=== PATIENT | male | born 1960 | race Two or more races ===

== ENCOUNTER 2022-07-10 07:22 | Day surgery (SDC) | payer MEDICAID ==
[~2022-07-10] VITALS: Ht 170.2 cm; Wt 70.3 kg
[~2022-07-10 07:22] MED LIST: APIX5TAB PO; ATOR20TA50 PO; DAPA1TAB4 PO; FURO20TA3 PO; METO25TA5 PO; SACU1TAB PO; SERT-375 PO; SPIR25TA8 PO
[2022-07-10] MEDS ORDERED: MIDAZOLAM HCL 2MG/2ML 2ml VIAL (1mg/ml) IV ONE (08:15)
[2022-07-10] MEDS ORDERED: fentaNYL CITRATE 100 MCG/2 ML VL IV ONE (08:15)
[2022-07-10] MEDS ORDERED: LIDOCAINE VISCOUS 2% 15ML UD MT ONE (08:15)
[2022-07-10] MEDS ORDERED: diphenhdrAMINE HCL 50 MG/1 ML VL IV ONE (08:15)
[2022-07-10 09:14] VITALS: BP 91/60
== END 2022-07-10 10:38 | disposition home or self-care (01) ==
LOC: CATH 07:22
PROVIDERS: ATTEND Internal Medicine
DX: I05.9 Rheumatic mitral valve disease, unspecified (principal); I11.0 Hypertensive heart disease with heart failure; I50.20 Unspecified systolic (congestive) heart failure; E78.5 Hyperlipidemia, unspecified; Z87.891 Personal history of nicotine dependence; Z79.02 Long term (current) use of antithrombotics/antiplatelets; Z20.822 Contact with and (suspected) exposure to COVID-19
CPT/HCPCS: 93312; J1200; J2250; J3010; U0003; 99152

== ENCOUNTER 2022-08-20 15:39 | Emergency (ER) | payer MEDICAID ==
[~2022-08-20] VITALS: Ht 170.2 cm; Wt 80.0 kg
[2022-08-20 18:02] LABS: Basophils # (auto) 0 10 ^3/uL (0-0.2); Basophils % (auto) 0.5 % (0.0-2.0); Eosinophils # (auto) 0.1 10 ^3/uL (0-0.8); Eosinophils % (auto) 1.5 % (0.0-7.0); Hematocrit 40.3 % (41.0-53.0); Hemoglobin 13.2 g/dL (13.5-17.5); Lymphocytes # (auto) 1.9 10 ^3/uL (0.4-5.4); Lymphocytes % (auto) 33.5 % (10.0-50.0); Mean Corpuscular Hemoglobin 30.2 pg (28.0-32.0); Mean Corpuscular Hgb Conc. 32.8 g/dL (32.0-36.0); Mean Corpuscular Volume 92.2 fL (80.0-100.0); Monocytes # (auto) 0.6 10 ^3/uL (0-1.3); Monocytes % (auto) 10.9 % (0.0-12.0); Neutrophils % (auto) 53.6 % (37.0-80.0); Nucleated Red Blood Cells % 0.2 %; Red Blood Cells 4.37 10^6/uL (4.5-5.90); Red Cell Distribution Width 13.9 % (11.8-14.3); White Blood Cell 5.6 10^3/uL (4.4-10.8)
[2022-08-20 18:21] LABS: Albumin 4.1 g/dL (3.4-5.0); Anion Gap 7 (5-15); Blood Urea Nitrogen 18 mg/dL (7-18); Calcium 8.4 mg/dL (8.5-10.1); Carbon Dioxide 25 mmol/L (21-32); Chloride 109 mmol/L (98-107); Glucose 102 mg/dL (74-106); Potassium 5.1 mmol/L (3.5-5.1); Sodium 141 mmol/L (136-145)
[2022-08-20 18:23] LABS: Alanine Aminotransferase 28 U/L (16-61); Aspartate Aminotransferase 23 U/L (15-37); BUN/Creatinine Ratio 19.8; GFR African American 108 mL/min; GFR Non-African American 89 mL/min
[2022-08-20 18:25] LABS: Alkaline Phosphatase 109 U/L (45-117); Bilirubin, Total 0.5 mg/dL (0.2-1.0); Total Protein 7.9 g/dL (6.4-8.2)
[2022-08-21] MEDS ORDERED: ASPirin 325 MG TAB PO ONE (06:30)
[2022-08-21] MEDS ORDERED: MORPHINE SULFATE 4 MG/ML SYR/VIAL IV ONE (06:30)
[2022-08-21] MEDS ORDERED: ONDANSETRON HCL 4 MG/2 ML VIAL IV ONE (06:30)
[2022-08-21 07:39] VITALS: BP 145/80
[2022-08-22] MEDS ORDERED: CARV6.2551 PO (10:32)
== END 2022-08-21 11:52 | disposition home or self-care (01) ==
LOC: ER 15:39
DX: R07.89 Other chest pain (principal); I10 Essential (primary) hypertension; Z79.899 Other long term (current) drug therapy; Z20.822 Contact with and (suspected) exposure to COVID-19
CPT/HCPCS: 36415; 71045; 80053; 84484; 85025; 87426; 93005; 96374; 96375; 99285; J2270; J2405

== ENCOUNTER 2022-08-21 15:25 | Inpatient (IN) | payer MEDICAID ==
[~2022-08-21] VITALS: Ht 170.2 cm; Wt 72.7 kg
[2022-08-21 15:56] LABS: Basophils # (auto) 0 10 ^3/uL (0-0.2); Basophils % (auto) 0.2 % (0.0-2.0); Eosinophils # (auto) 0.1 10 ^3/uL (0-0.8); Eosinophils % (auto) 1.5 % (0.0-7.0); Hematocrit 39.2 % (41.0-53.0); Hemoglobin 12.9 g/dL (13.5-17.5); Lymphocytes # (auto) 1.4 10 ^3/uL (0.4-5.4); Lymphocytes % (auto) 20.9 % (10.0-50.0); Mean Corpuscular Hemoglobin 29.8 pg (28.0-32.0); Mean Corpuscular Hgb Conc. 32.9 g/dL (32.0-36.0); Mean Corpuscular Volume 90.4 fL (80.0-100.0); Monocytes # (auto) 0.7 10 ^3/uL (0-1.3); Monocytes % (auto) 10.7 % (0.0-12.0); Neutrophils # (auto) 4.6 10 ^3/uL (1.6-8.6); Neutrophils % (auto) 66.7 % (37.0-80.0); Nucleated Red Blood Cells % 0.1 %; Red Blood Cells 4.34 10^6/uL (4.5-5.90); Red Cell Distribution Width 13.5 % (11.8-14.3); White Blood Cell 6.9 10^3/uL (4.4-10.8)
[2022-08-21 16:19] LABS: Albumin 4.3 g/dL (3.4-5.0); BUN/Creatinine Ratio 14.2; Calcium 8.4 mg/dL (8.5-10.1); Potassium 3.8 mmol/L (3.5-5.1)
[2022-08-21 16:21] LABS: Bilirubin, Total 0.6 mg/dL (0.2-1.0)
[2022-08-21] MEDS ORDERED: ONDANSETRON HCL 4 MG/2 ML VIAL IV PRN (23:45)
[2022-08-21] MEDS ORDERED: MORPHINE SULFATE INJ 2 MG/ml SYRG IV PRN ×2 (23:45)
[2022-08-21] MEDS ORDERED: NITROGLYCERIN 0.4 MG SL TAB SL PRN (23:45)
[2022-08-22] MEDS ORDERED: MORPHINE SULFATE INJ 2 MG/ml SYRG IV PRN (05:30)
[2022-08-22] MEDS ORDERED: ONDANSETRON HCL 4 MG/2 ML VIAL IV PRN (05:30)
[2022-08-22] MEDS ORDERED: NITROGLYCERIN 0.4 MG SL TAB SL PRN (05:30)
[2022-08-22] MEDS ORDERED: ACETAMINOPHEN 325 MG TAB PO PRN (05:30)
[2022-08-22] MEDS ORDERED: TEMAZEPAM 15 MG CAP PO PRN (05:30)
[2022-08-22] MEDS ORDERED: PANTOPRAZOLE 40 MG TAB PO SCH (10:00)
[2022-08-22] MEDS ORDERED: CARVEDILOL 3.125 MG TAB PO SCH (10:00)
[2022-08-22] MEDS ORDERED: SACUBITRIL-VALSARTAN 24mg/26mg TAB PO SCH (10:00)
[2022-08-22] MEDS ORDERED: ASPirin 81 mg TAB PO SCH (10:00)
[2022-08-22] MEDS ORDERED: METOPROLOL SUCCINATE XL 50 MG TAB PO SCH (10:00)
[2022-08-22] MEDS ORDERED: FUROSEMIDE 20 MG TAB PO SCH (10:00)
[2022-08-22] MEDS ORDERED: SPIRONOLACTONE 25 MG TAB PO SCH (10:00)
[2022-08-22] MEDS ORDERED: APIXABAN 5 MG TAB PO SCH (10:00)
[2022-08-22] MEDS ORDERED: CARV6.2551 PO (10:32)
[2022-08-22 14:15] VITALS: BP 103/65
[2022-08-22] MEDS ORDERED: ATORVASTATIN 20 MG TAB PO SCH (22:00)
== END 2022-08-22 14:16 | disposition home or self-care (01) | DRG 198 ==
LOC: ER 15:25 → TELE 23:49
PROVIDERS: ADMIT Internal Medicine; ATTEND Internal Medicine
DX: R07.9 Chest pain, unspecified (principal); I25.10 Atherosclerotic heart disease of native coronary artery without angina pectoris; I11.0 Hypertensive heart disease with heart failure; I50.9 Heart failure, unspecified; E78.5 Hyperlipidemia, unspecified; Z20.822 Contact with and (suspected) exposure to COVID-19; F32.A Depression, unspecified; Z79.01 Long term (current) use of anticoagulants; Z72.0 Tobacco use; Z95.5 Presence of coronary angioplasty implant and graft; Z91.199 Patient's noncompliance with other medical treatment and regimen due to unspecified reason; Z79.899 Other long term (current) drug therapy; Z86.79 Personal history of other diseases of the circulatory system
CPT/HCPCS: 36415; 80053; 84484; 85025; 85379; 87426; 93005; G0378

== ENCOUNTER 2024-03-04 08:04 | Inpatient (IN) | payer MEDICAID ==
[~2024-03-04] VITALS: Ht 170.2 cm; Wt 75.1 kg
[~2024-03-04 08:04] MED LIST changes: +CARV6.2551 PO
[2024-03-04 08:32] LABS: Basophils # (auto) 0 10 ^3/uL (0-0.2); Basophils % (auto) 0.4 % (0.0-2.0); Eosinophils # (auto) 0.1 10 ^3/uL (0-0.8); Hematocrit 42.2 % (41.0-53.0); Hemoglobin 13.9 g/dL (13.5-17.5); Lymphocytes # (auto) 1.6 10 ^3/uL (0.4-5.4); Mean Corpuscular Hemoglobin 28.9 pg (28.0-32.0); Mean Corpuscular Volume 87.7 fL (80.0-100.0); Monocytes # (auto) 0.4 10 ^3/uL (0-1.3); Monocytes % (auto) 9.5 % (0.0-12.0); Neutrophils # (auto) 2.3 10 ^3/uL (1.6-8.6); Neutrophils % (auto) 52.1 % (37.0-80.0); Nucleated Red Blood Cells % 0.2 %; Red Blood Cells 4.81 10^6/uL (4.5-5.90); Red Cell Distribution Width 14.5 % (11.8-14.3); White Blood Cell 4.5 10^3/uL (4.4-10.8)
[2024-03-04] MEDS: NITROGLYCERIN 0.4 MG SL TAB SL ONE (09:00)
[2024-03-04] MEDS: ASPirin 325 MG TAB PO ONE (09:00)
[2024-03-04 09:03] LABS: Alanine Aminotransferase 13 U/L (7-40); Albumin 4.9 g/dL (3.2-4.8); Alkaline Phosphatase 92 U/L (46-116); Anion Gap 8 (5-15); Aspartate Aminotransferase 21 U/L (13-40); BUN/Creatinine Ratio 8.9 (10.0-20.0); Blood Urea Nitrogen 9 mg/dL (9-23); Calcium 9.7 mg/dL (8.5-10.1); Carbon Dioxide 25 mmol/L (20-30); Chloride 107 mmol/L (98-107); Glucose 107 mg/dL (74-106); Potassium 4.2 mmol/L (3.5-5.1); Sodium 140 mmol/L (136-145)
[2024-03-04 09:04] LABS: Bilirubin, Total 0.9 mg/dL (0.2-1.0); Total Protein 8.2 g/dL (5.7-8.2)
[2024-03-04] MEDS ORDERED: ONDANSETRON HCL 4 MG/2 ML VIAL IV PRN (12:15)
[2024-03-04] MEDS ORDERED: NITROGLYCERIN 0.4 MG SL TAB SL PRN (12:15)
[2024-03-04] MEDS ORDERED: MORPHINE SULFATE INJ 2 MG/ml SYRG IV PRN (12:15)
[2024-03-04] MEDS ORDERED: ACETAMINOPHEN 325 MG TAB PO PRN (12:15)
[2024-03-04 12:43] LABS: INR 1.04 (0.9-1.15); Partial Thromboplastin Time 24.9 SEC (24.5-34.5)
[2024-03-04 15:00] VITALS: PULSE 84; RESP 17; O2SAT 94
[2024-03-04 15:17] LABS: Urine Bacteria None Seen /hpf (None Seen)
[2024-03-04 15:32] LABS: Urine Blood Negative /uL (Negative); Urine Clarity Clear (Clear); Urine Color Yellow (Yellow); Urine Mucus FEW (None Seen); Urine Protein, UAD Negative (Negative); Urine Specific Gravity 1.025 (1.001-1.035); Urine Urobilinogen Normal (Negative); Urine WBC 1 /hpf (0 - 3)
[2024-03-04 19:30] VITALS: PULSE 70; RESP 17; O2SAT 94
[2024-03-04] MEDS: IOHEXOL 350 MG/ML 100ML IJ ONE (21:02)
[2024-03-04] MEDS: FAMOTIDINE 20 MG TAB PO SCH (21:59)
[2024-03-04] MEDS: SACUBITRIL-VALSARTAN 24mg/26mg TAB PO SCH (21:59)
[2024-03-04] MEDS: APIXABAN 5 MG TAB PO SCH (21:59)
[2024-03-04] MEDS: CARVEDILOL 3.125 MG TAB PO SCH (22:00)
[2024-03-04] MEDS ORDERED: PATIENTS OWN MEDICATION (Carvedilol 1 TAB) PO SCH (22:00)
[2024-03-05] VITALS (8 sets, daily range): BP systolic 100–113; BP diastolic 68–78; PULSE 66–92; RESP 16–20; TEMP 97.5–98.8; O2SAT 93–97
[2024-03-05 06:16] LABS: Chloride 106 mmol/L (98-107); Potassium 4.3 mmol/L (3.5-5.1); Sodium 137 mmol/L (136-145)
[2024-03-05 06:17] LABS: Anion Gap 7 (5-15); Carbon Dioxide 24 mmol/L (20-30)
[2024-03-05 06:18] LABS: Calcium 9.4 mg/dL (8.5-10.1)
[2024-03-05 06:22] LABS: BUN/Creatinine Ratio 12.5 (10.0-20.0); Blood Urea Nitrogen 11 mg/dL (9-23); Glucose 100 mg/dL (74-106)
[2024-03-05] MEDS ORDERED: SERTRALINE HCL 25 MG PO SCH (10:00)
[2024-03-05] MEDS: FUROSEMIDE 20 MG TAB PO SCH (11:56)
[2024-03-05] MEDS: ATORVASTATIN 20 MG TAB PO SCH (11:56)
[2024-03-05] MEDS: SERTRALINE HCL 50 MG TAB PO SCH (11:57)
[2024-03-05] MEDS: SODIUM CHLORIDE 0.9% 1,000 ML IV SCH (15:15)
[2024-03-06] VITALS (14 sets, daily range): BP systolic 87–121; BP diastolic 58–85; PULSE 52–97; RESP 11–22; TEMP 97.3–98.6; O2SAT 92–97
[2024-03-06 06:19] LABS: Basophils # (auto) 0.1 10 ^3/uL (0-0.2); Basophils % (auto) 0.9 % (0.0-2.0); Eosinophils # (auto) 0.2 10 ^3/uL (0-0.8); Eosinophils % (auto) 3.2 % (0.0-7.0); Hematocrit 37.4 % (41.0-53.0); Hemoglobin 12.5 g/dL (13.5-17.5); Lymphocytes % (auto) 35.4 % (10.0-50.0); Mean Corpuscular Hgb Conc. 33.4 g/dL (32.0-36.0); Mean Corpuscular Volume 89.8 fL (80.0-100.0); Monocytes # (auto) 0.6 10 ^3/uL (0-1.3); Monocytes % (auto) 11.2 % (0.0-12.0); Neutrophils # (auto) 2.8 10 ^3/uL (1.6-8.6); Neutrophils % (auto) 49.3 % (37.0-80.0); Nucleated Red Blood Cells % 0.3 %; Red Blood Cells 4.17 10^6/uL (4.5-5.90); Red Cell Distribution Width 15.1 % (11.8-14.3); White Blood Cell 5.7 10^3/uL (4.4-10.8)
[2024-03-06 06:35] LABS: Alanine Aminotransferase 14 U/L (7-40); Alkaline Phosphatase 75 U/L (46-116); Anion Gap 7 (5-15); Calcium 9.5 mg/dL (8.7-10.4); Carbon Dioxide 22 mmol/L (20-30); Chloride 110 mmol/L (98-107); INR 1.06 (0.9-1.15); Partial Thromboplastin Time 25.4 SEC (24.5-34.5); Potassium 4.5 mmol/L (3.5-5.1); Prothrombin Time 11.2 sec (9.3-11.8); Sodium 139 mmol/L (136-145)
[2024-03-06 06:36] LABS: BUN/Creatinine Ratio 12.3 (10.0-20.0); Blood Urea Nitrogen 13 mg/dL (9-23); Glucose 110 mg/dL (74-106)
[2024-03-06 06:38] LABS: Albumin 4.1 g/dL (3.2-4.8); Aspartate Aminotransferase 17 U/L (13-40); Bilirubin, Total 0.7 mg/dL (0.2-1.0); Total Protein 6.9 g/dL (5.7-8.2)
[2024-03-06] MEDS: IODIXANOL 320MG/ML 100ML BTL IV ONE ×2 (08:20→12:41)
[2024-03-06] MEDS: ANGIOMAX 250 MG VIAL IV ONE (12:34)
[2024-03-06] MEDS: MIDAZOLAM HCL 2MG/2ML 2ml VIAL (1mg/ml) ONE (12:35)
[2024-03-06] MEDS: fentaNYL CITRATE 100 MCG/2 ML VL ONE (12:35)
[2024-03-06] MEDS: SODIUM CHL 0.9% 0 ML ONE (12:35)
[2024-03-06] MEDS: VERAPAMIL 2.5MG/ML INJ 2ML VIAL IV ONE (12:41)
[2024-03-06] MEDS: HEPARIN SODIUM (PORCINE) 5000 UNITS/ML 1ML VIAL ONE (12:41)
[2024-03-06] MEDS: LIDOCAINE 2%HCL (LOCAL ANESTH.) INJ 20ML MDV ONE (12:41)
[2024-03-06] MEDS ORDERED: SACU1TAB PO (19:33)
[2024-03-06] MEDS ORDERED: APIX5TAB PO (19:33)
[2024-03-06] MEDS ORDERED: METO25TA5 PO (19:33)
[2024-03-06] MEDS ORDERED: CARV6.2551 PO (19:33)
[2024-03-06] MEDS ORDERED: DAPA1TAB4 PO (19:33)
[2024-03-06] MEDS ORDERED: ATOR20TA50 PO (19:33)
[2024-03-06] MEDS ORDERED: FURO20TA3 PO (19:33)
== END 2024-03-06 18:59 | disposition home or self-care (01) | DRG 191 ==
LOC: ER 08:04 → TELE 12:06 → TELE-WESTW 12:06
PROVIDERS: ADMIT Hospitalist; ATTEND Hospitalist
PROC: B211YZZ Fluoroscopy of Multiple Coronary Arteries using Other Contrast (ICD-10-PCS; principal; 2024-03-06)
PROC: 4A023N7 Measurement of Cardiac Sampling and Pressure, Left Heart, Percutaneous Approach (ICD-10-PCS; 2024-03-06)
DX: I24.9 Acute ischemic heart disease, unspecified (principal); I42.8 Other cardiomyopathies; I50.22 Chronic systolic (congestive) heart failure; I11.0 Hypertensive heart disease with heart failure; I25.10 Atherosclerotic heart disease of native coronary artery without angina pectoris; Z79.899 Other long term (current) drug therapy; Z79.01 Long term (current) use of anticoagulants; Z79.84 Long term (current) use of oral hypoglycemic drugs; Z95.818 Presence of other cardiac implants and grafts; I25.2 Old myocardial infarction
CPT/HCPCS: 36415; 71045; 71275; 80048; 80053; 81001; 84439; 84443; 84484; 85025; 85379; 85610; 85730; 86850; 86900; 86901; 93005; 93306; 93458; 99152; G0378; J2250; Q9967

== ENCOUNTER 2024-08-05 06:44 | Inpatient (IN) | payer MEDICAID ==
[~2024-08-05] VITALS: Ht 170.2 cm; Wt 73.8 kg
[~2024-08-05 06:44] MED LIST changes: -SPIR25TA8 PO
[2024-08-05 07:58] VITALS: PULSE 118; RESP 18; O2SAT 98
[2024-08-05] MEDS ORDERED: HYDROmorphone HCL 2 MG/ML VL/or syr IV ONE (08:00)
[2024-08-05] MEDS: SODIUM CHLORIDE 0.9% 1,000 ML IV ONE ×2 (08:22→08:31)
[2024-08-05] MEDS: ONDANSETRON HCL 4 MG/2 ML VIAL IV ONE (08:22)
[2024-08-05] MEDS: MORPHINE SULFATE INJ 2 MG/ml SYRG IV ONE (08:22)
[2024-08-05 08:48] LABS: Basophils # (auto) 0 10 ^3/uL (0-0.2); Basophils % (auto) 0.1 % (0.0-2.0); Eosinophils # (auto) 0 10 ^3/uL (0-0.8); Eosinophils % (auto) 0.6 % (0.0-7.0); Hematocrit 35.8 % (41.0-53.0); Hemoglobin 12.1 g/dL (13.5-17.5); Lymphocytes # (auto) 0.4 10 ^3/uL (0.4-5.4); Lymphocytes % (auto) 5.9 % (10.0-50.0); Mean Corpuscular Hemoglobin 29.5 pg (28.0-32.0); Mean Corpuscular Hgb Conc. 33.9 g/dL (32.0-36.0); Mean Corpuscular Volume 87.1 fL (80.0-100.0); Monocytes # (auto) 0.1 10 ^3/uL (0-1.3); Monocytes % (auto) 1.1 % (0.0-12.0); Neutrophils # (auto) 6.2 10 ^3/uL (1.6-8.6); Neutrophils % (auto) 92.3 % (37.0-80.0); Nucleated Red Blood Cells % 0.1 %; Platelet Count (auto) 149 10^3/uL (140-450); Red Blood Cells 4.11 10^6/uL (4.5-5.90); Red Cell Distribution Width 19.1 % (11.8-14.3); White Blood Cell 6.7 10^3/uL (4.4-10.8)
[2024-08-05 09:04] LABS: Albumin 3.8 g/dL (3.2-4.8); Alkaline Phosphatase 206 U/L (46-116); Anion Gap 20 (5-15); BUN/Creatinine Ratio 9.2 (10.0-20.0); Bilirubin, Total 6.5 mg/dL (0.2-1.0); Blood Urea Nitrogen 42 mg/dL (9-23); Calcium 7.1 mg/dL (8.7-10.4); Carbon Dioxide 20 mmol/L (20-31); Chloride 98 mmol/L (98-107); Glucose 81 mg/dL (74-106); Magnesium 1.4 mg/dL (1.6-2.6); Partial Thromboplastin Time 43.3 SEC (24.5-34.5); Potassium 3.9 mmol/L (3.5-5.1); Sodium 138 mmol/L (136-145); Total Protein 6.4 g/dL (5.7-8.2)
[2024-08-05 09:25] LABS: INR > 8.0 (0.9-1.15)
[2024-08-05 09:54] LABS: Alanine Aminotransferase 5404 U/L (7-40); Aspartate Aminotransferase > 6000 U/L (13-40)
[2024-08-05 10:07] LABS: Lipase 58 U/L (12-53)
[2024-08-05] MEDS: MAGNESIUM SULFATE 1GM/100ML 100 ML IV SCH (14:00)
[2024-08-05] MEDS: SODIUM CHLORIDE 0.9% 1,000 ML IV SCH (15:45)
[2024-08-05] MEDS ORDERED: NITROGLYCERIN 0.4 MG SL TAB SL PRN (15:45)
[2024-08-05] MEDS ORDERED: DOCUSATE SOD 100 MG CAP PO PRN (15:45)
[2024-08-05] MEDS: PHYTONADIONE (VIT K)10 MG/ML 1ML VIAL SUBCUT ONE (16:43)
[2024-08-05] MEDS: ACETYLCYSTEINE 200MG/ML IV SOL 10,200 MG in D5W 5% 250 ML IV ONE (17:52)
[2024-08-05] MEDS: ACETYLCYSTEINE 200MG/ML IV SOL 3,400 MG in D5W 5% 500 ML IV ONE (18:49)
[2024-08-05 19:22] VITALS: PULSE 111; RESP 26; O2SAT 91
[2024-08-05] MEDS: ACETYLCYSTEINE 200MG/ML IV SOL 6,800 MG in D5W 5% 1,000 ML IV SCH (23:08)
[2024-08-05 23:18] LABS: Creatinine, Urine 96.22 mg/dL (30.0-125.0); Urine Amorphous Crystal MOD /hpf (None Seen); Urine Bacteria FEW /hpf (None Seen); Urine Blood 3+ /uL (Negative); Urine Clarity Ex.Turbid (Clear); Urine Color Dark-Yellow (Yellow); Urine Protein, UAD 2+ (Negative); Urine Specific Gravity 1.021 (1.001-1.035); Urine Urobilinogen Normal (Negative); Urine WBC 9 /hpf (0 - 3); Urine pH 5.5 (5.0-9.0)
[2024-08-05 23:57] LABS: Alkaline Phosphatase 172 U/L (46-116); Anion Gap 14 (5-15); BUN/Creatinine Ratio 7.4 (10.0-20.0); Bilirubin, Total 5.9 mg/dL (0.2-1.0); Blood Urea Nitrogen 39 mg/dL (9-23); Carbon Dioxide 22 mmol/L (20-31); Chloride 96 mmol/L (98-107); Glucose 172 mg/dL (74-106); Potassium 3.4 mmol/L (3.5-5.1); Total Protein 5.1 g/dL (5.7-8.2)
[2024-08-06] VITALS (7 sets, daily range): BP systolic 111–125; BP diastolic 67–82; PULSE 51–110; RESP 16–20; TEMP 98–98.5; O2SAT 93–96
[2024-08-06 00:14] LABS: Alanine Aminotransferase 3460 U/L (7-40); Aspartate Aminotransferase > 6000 U/L (13-40); Calcium 5.9 mg/dL (8.7-10.4); Sodium 132 mmol/L (136-145)
[2024-08-06 00:30] LABS: Prothrombin Time 44.1 sec (9.3-11.8)
[2024-08-06 00:40] LABS: Base Excess -2.8 mmol/L (-2.0-3.0)
[2024-08-06 00:47] LABS: INR 4.66 (0.9-1.15)
[2024-08-06] MEDS: CALCIUM GLUC 1,000mg/50ml-NS 50 ML IV SCH (01:51)
[2024-08-06 06:37] LABS: Basophils # (auto) 0 10 ^3/uL (0-0.2); Basophils % (auto) 0.1 % (0.0-2.0); Eosinophils # (auto) 0.1 10 ^3/uL (0-0.8); Eosinophils % (auto) 1.5 % (0.0-7.0); Hematocrit 27.7 % (41.0-53.0); Hemoglobin 9.7 g/dL (13.5-17.5); Lymphocytes # (auto) 0.6 10 ^3/uL (0.4-5.4); Lymphocytes % (auto) 13.6 % (10.0-50.0); Mean Corpuscular Hemoglobin 29.4 pg (28.0-32.0); Mean Corpuscular Hgb Conc. 34.8 g/dL (32.0-36.0); Mean Corpuscular Volume 84.5 fL (80.0-100.0); Monocytes # (auto) 0.1 10 ^3/uL (0-1.3); Monocytes % (auto) 2.6 % (0.0-12.0); Neutrophils # (auto) 3.9 10 ^3/uL (1.6-8.6); Neutrophils % (auto) 82.2 % (37.0-80.0); Platelet Count (auto) 147 10^3/uL (140-450); Red Blood Cells 3.28 10^6/uL (4.5-5.90); White Blood Cell 4.8 10^3/uL (4.4-10.8)
[2024-08-06 06:42] LABS: Albumin 2.9 g/dL (3.2-4.8); Alkaline Phosphatase 183 U/L (46-116); Anion Gap 16 (5-15); BUN/Creatinine Ratio 7.8 (10.0-20.0); Blood Urea Nitrogen 43 mg/dL (9-23); Calcium 6.6 mg/dL (8.7-10.4); Carbon Dioxide 20 mmol/L (20-31); Chloride 97 mmol/L (98-107); Cholesterol 55 mg/dL (< 200); Glucose 133 mg/dL (74-106); HDL Cholesterol 8 mg/dL (40-59); LDL Cholesterol 12 mg/dL (< 100); Magnesium 1.8 mg/dL (1.6-2.6); Partial Thromboplastin Time 43.3 SEC (24.5-34.5); Potassium 3.3 mmol/L (3.5-5.1); Prothrombin Time 41.7 sec (9.3-11.8); Sodium 133 mmol/L (136-145); Triglycerides 121 mg/dL (< 150)
[2024-08-06 06:43] LABS: Phosphorus 2.6 mg/dL (2.4-5.1)
[2024-08-06 06:53] LABS: Aspartate Aminotransferase 5386 U/L (13-40)
[2024-08-06 06:56] LABS: Alanine Aminotransferase 3285 U/L (7-40)
[2024-08-06] MEDS: SODIUM BICARB 8.4% 50Meq/50ml SYR Vial IV ONE (07:03)
[2024-08-06 07:16] LABS: INR 4.39 (0.9-1.15)
[2024-08-06 07:22] LABS: Lipase 45 U/L (12-53)
[2024-08-06 09:15] LABS: Hepatitis B Surface Antigen Negative (Negative)
[2024-08-06 09:36] LABS: Hepatitis B Core IgM Negative; Hepatitis C Antibody Negative (Negative)
[2024-08-06 10:00] LABS: Hepatitis A Ab IgM Negative
[2024-08-06 14:00] LABS: INR 3.19 (0.9-1.15)
[2024-08-06 14:01] LABS: Alkaline Phosphatase 197 U/L (46-116); Anion Gap 17 (5-15); BUN/Creatinine Ratio 7.5 (10.0-20.0); Blood Urea Nitrogen 44 mg/dL (9-23); Calcium 6.9 mg/dL (8.7-10.4); Carbon Dioxide 20 mmol/L (20-31); Chloride 96 mmol/L (98-107); Glucose 153 mg/dL (74-106); Potassium 3.1 mmol/L (3.5-5.1); Sodium 133 mmol/L (136-145)
[2024-08-06 14:04] LABS: Bilirubin, Total 6.4 mg/dL (0.2-1.0); Total Protein 5.2 g/dL (5.7-8.2)
[2024-08-06] MEDS: ERGOCALCIFEROL 50,000 UNIT(1.25MG) CAP PO SCH (14:06)
[2024-08-06 14:13] LABS: Alanine Aminotransferase 3043 U/L (7-40); Aspartate Aminotransferase 4368 U/L (13-40)
[2024-08-06] MEDS: METOPROLOL SUCCINATE XL 50 MG TAB PO SCH (15:51)
[2024-08-06] MEDS: FUROSEMIDE 40 MG/4 ML VIAL IV ONE (15:56)
[2024-08-06] MEDS: SODIUM BICARB 8.4% 50Meq/50ml SYR INJ ONE (16:40)
[2024-08-06] MEDS: MORPHINE SULFATE INJ 2 MG/ml SYRG IV PRN (21:47)
[2024-08-06] MEDS: SODIUM BICARB 50mEq/50ml Vial 150 ML in D5W 5% 1,000 ML IV SCH (21:55)
[2024-08-07 05:00] VITALS: BP 118/75; PULSE 98; RESP 19; TEMP 98.3; O2SAT 91
[2024-08-07 08:00] VITALS: PULSE 82
[2024-08-07 08:06] LABS: EBV Ab VCA IgG Antibody 41.3 U/mL (0.0-17.9); EBV Ab VCA IgM Antibody <36.0 U/mL (0.0-35.9); EBV Early Antigen IgG Antibody 49.3 U/mL (0.0-17.9)
[2024-08-07 08:31] LABS: INR 1.96 (0.9-1.15); Prothrombin Time 19.8 sec (9.3-11.8)
[2024-08-07 09:10] LABS: Basophils # (auto) 0 10 ^3/uL (0-0.2); Basophils % (auto) 0.3 % (0.0-2.0); Eosinophils # (auto) 0.1 10 ^3/uL (0-0.8); Eosinophils % (auto) 3.4 % (0.0-7.0); Hematocrit 27.2 % (41.0-53.0); Hemoglobin 9.6 g/dL (13.5-17.5); Lymphocytes # (auto) 0.8 10 ^3/uL (0.4-5.4); Lymphocytes % (auto) 19.8 % (10.0-50.0); Mean Corpuscular Hemoglobin 29.6 pg (28.0-32.0); Mean Corpuscular Hgb Conc. 35.2 g/dL (32.0-36.0); Monocytes # (auto) 0.3 10 ^3/uL (0-1.3); Monocytes % (auto) 8.6 % (0.0-12.0); Neutrophils # (auto) 2.6 10 ^3/uL (1.6-8.6); Neutrophils % (auto) 67.9 % (37.0-80.0); Nucleated Red Blood Cells % 0.1 %; Platelet Count (auto) 162 10^3/uL (140-450); Red Blood Cells 3.24 10^6/uL (4.5-5.90); Red Cell Distribution Width 18.6 % (11.8-14.3); White Blood Cell 3.8 10^3/uL (4.4-10.8)
[2024-08-07 09:21] LABS: Albumin 2.8 g/dL (3.2-4.8); Alkaline Phosphatase 227 U/L (46-116); Anion Gap 14 (5-15); BUN/Creatinine Ratio 6.9 (10.0-20.0); Blood Urea Nitrogen 43 mg/dL (9-23); Calcium 7.1 mg/dL (8.7-10.4); Carbon Dioxide 25 mmol/L (20-31); Chloride 94 mmol/L (98-107); Glucose 122 mg/dL (74-106); Potassium 2.9 mmol/L (3.5-5.1); Sodium 133 mmol/L (136-145)
[2024-08-07 09:22] LABS: Bilirubin, Total 5.8 mg/dL (0.2-1.0)
[2024-08-07 09:24] LABS: INR 1.94 (0.9-1.15); Prothrombin Time 19.6 sec (9.3-11.8)
[2024-08-07 09:33] LABS: Aspartate Aminotransferase 2189 U/L (13-40)
[2024-08-07 09:37] VITALS: BP 99/66; PULSE 109; RESP 17; TEMP 97.6; O2SAT 96
[2024-08-07 09:37] LABS: Alanine Aminotransferase 2255 U/L (7-40)
[2024-08-07] MEDS: SODIUM BICARB 50mEq/50ml Vial 150 ML in D5W 5% 1,000 ML IV SCH (11:20)
[2024-08-07 13:00] VITALS: BP 119/67; PULSE 92; RESP 17; TEMP 97.5; O2SAT 96
[2024-08-07] MEDS ORDERED: SPIR25TA8 PO (15:14)
[2024-08-07] MEDS ORDERED: METO25TA93 PO (15:14)
[2024-08-07] MEDS ORDERED: PANT40T PO (15:14)
[2024-08-07] MEDS ORDERED: ATOR40TA52 PO (15:14)
[2024-08-07] MEDS ORDERED: ASPI81CH74 PO (15:14)
[2024-08-07] MEDS: phytonadione 2.5 MG in SODIUM CHL 0.9% 50 ML IV ONE (15:21)
[2024-08-07 20:00] VITALS: PULSE 99; RESP 21; O2SAT 95
[2024-08-07 20:15] VITALS: PULSE 99
[2024-08-07] MEDS: SODIUM BICARB 8.4% 50Meq/50ml SYR INJ ONE (21:02)
[2024-08-08] VITALS (13 sets, daily range): BP systolic 90–115; BP diastolic 54–69; PULSE 98–115; RESP 14–36; TEMP 98–99.1; O2SAT 81–99
[2024-08-08 05:23] LABS: Albumin 3.2 g/dL (3.2-4.8); Alkaline Phosphatase 340 U/L (46-116); Anion Gap 14 (5-15); BUN/Creatinine Ratio 7.4 (10.0-20.0); Bilirubin, Total 6.1 mg/dL (0.2-1.0); Blood Urea Nitrogen 42 mg/dL (9-23); Calcium 7.7 mg/dL (8.7-10.4); Carbon Dioxide 31 mmol/L (20-31); Chloride 90 mmol/L (98-107); Glucose 139 mg/dL (74-106); Potassium 2.6 mmol/L (3.5-5.1); Sodium 135 mmol/L (136-145); Total Protein 5.7 g/dL (5.7-8.2)
[2024-08-08 05:34] LABS: Aspartate Aminotransferase 1175 U/L (13-40)
[2024-08-08 05:35] LABS: Alanine Aminotransferase 1835 U/L (7-40)
[2024-08-08] MEDS: PROCHLORPERAZINE EDISYLATE 5 MG/ML 2ML VIAL IV ONE (07:03)
[2024-08-08] MEDS: POTASSIUM CHL 20MEQ/100ML 100 ML IV ONE (08:48)
[2024-08-08] MEDS: POTASSIUM EFFERVESENT TAB 25 MEQ PO ONE (10:00)
[2024-08-08] MEDS: SODIUM CHLORIDE 0.9% 1,000 ML IV SCH (11:29)
[2024-08-08] MEDS: POTASSIUM CHLORIDE 40 MEQ, LIDOCAINE 1% (LOCAL ANESTH.) 4 ML in SODIUM CHL 0.9% 250 ML IV ONE (11:55)
[2024-08-08 12:58] LABS: Albumin 3.4 g/dL (3.2-4.8); Alkaline Phosphatase 369 U/L (46-116); Anion Gap 14 (5-15); BUN/Creatinine Ratio 8.1 (10.0-20.0); Bilirubin, Total 6.3 mg/dL (0.2-1.0); Blood Urea Nitrogen 40 mg/dL (9-23); Calcium 7.9 mg/dL (8.7-10.4); Carbon Dioxide 30 mmol/L (20-31); Chloride 90 mmol/L (98-107); Glucose 117 mg/dL (74-106); Potassium 2.9 mmol/L (3.5-5.1); Sodium 134 mmol/L (136-145)
[2024-08-08 12:59] LABS: Total Protein 6.1 g/dL (5.7-8.2)
[2024-08-08 13:12] LABS: Alanine Aminotransferase 1760 U/L (7-40)
[2024-08-08] MEDS: ONDANSETRON HCL 4 MG/2 ML VIAL IV PRN (15:04)
[2024-08-08] MEDS: MAGNESIUM SULFATE 1GM/100ML 100 ML IV ONE (16:05)
[2024-08-09] VITALS (7 sets, daily range): BP systolic 94–102; BP diastolic 53–74; PULSE 75–120; RESP 17–20; TEMP 98–98.2; O2SAT 94–99
[2024-08-09 06:43] LABS: Hematocrit 32.1 % (41.0-53.0); Mean Corpuscular Hemoglobin 29.1 pg (28.0-32.0); Mean Corpuscular Hgb Conc. 34.4 g/dL (32.0-36.0); Mean Corpuscular Volume 84.5 fL (80.0-100.0); Platelet Count (auto) 187 10^3/uL (140-450); Red Cell Distribution Width 19.9 % (11.8-14.3); White Blood Cell 3.1 10^3/uL (4.4-10.8)
[2024-08-09 06:53] LABS: Anion Gap 10 (5-15); Carbon Dioxide 33 mmol/L (20-31); Chloride 94 mmol/L (98-107); Sodium 137 mmol/L (136-145)
[2024-08-09 06:54] LABS: Calcium 7.6 mg/dL (8.7-10.4)
[2024-08-09 06:59] LABS: BUN/Creatinine Ratio 9.4 (10.0-20.0); Blood Urea Nitrogen 37 mg/dL (9-23); Glucose 111 mg/dL (74-106)
[2024-08-09 07:21] LABS: Basophils % (manual) 0 (0.0-2.0); Blast Cells 0; Metamyelocytes % 0; Myelocytes % 0; Promyelocytes % 0
[2024-08-09 08:35] LABS: Anisocytosis Slight; Band Neutrophils % (manual) 1; Eosinophils % (manual) 1 (0-7); Lymphocytes % (manual) 26 (10.0-50.0); Monocytes % (manual) 24 (0-12); Platelet Estimate Adequate; Reactive Lymphocytes 1
[2024-08-09 08:36] LABS: Tear Drop Cells FEW
[2024-08-09] MEDS: POTASSIUM EFFERVESENT TAB 25 MEQ PO ONE (14:18)
[2024-08-10 01:00] VITALS: BP 107/63; PULSE 109; RESP 18; TEMP 98; O2SAT 94
[2024-08-10] MEDS: ACETYLCYSTEINE 6GM/30ml (200mg/ml) IV SOLN 30ML IV ONE (02:33)
[2024-08-10 05:00] VITALS: BP 93/64; PULSE 74; RESP 18; TEMP 97.9; O2SAT 98
[2024-08-10 07:33] LABS: Alanine Aminotransferase 864 U/L (7-40); Albumin 3.3 g/dL (3.2-4.8); Alkaline Phosphatase 375 U/L (46-116); Anion Gap 9 (5-15); Aspartate Aminotransferase 394 U/L (13-40); BUN/Creatinine Ratio 9.6 (10.0-20.0); Bilirubin, Total 6.3 mg/dL (0.2-1.0); Calcium 7.5 mg/dL (8.7-10.4); Carbon Dioxide 31 mmol/L (20-31); Chloride 96 mmol/L (98-107); Glucose 131 mg/dL (74-106); Potassium 3.5 mmol/L (3.5-5.1); Sodium 136 mmol/L (136-145); Total Protein 6.1 g/dL (5.7-8.2)
[2024-08-10 07:37] LABS: Blood Urea Nitrogen 24 mg/dL (9-23)
[2024-08-10 08:00] VITALS: PULSE 95; PULSE 97; RESP 21; O2SAT 95
[2024-08-10 09:00] VITALS: BP 92/62; PULSE 95; RESP 21; TEMP 98.1; O2SAT 95
[2024-08-10 13:00] VITALS: BP 107/67; PULSE 113; RESP 22; TEMP 98.3; O2SAT 94
[2024-08-10] MEDS ORDERED: METO25TA5 PO (14:37)
[2024-08-10 15:54] VITALS: BP 107/67; PULSE 113; RESP 22; TEMP 98.3; O2SAT 94
== END 2024-08-10 16:45 | disposition home or self-care (01) | DRG 812 ==
LOC: ER 06:44 → TELE-CENTR 15:44 → TELE 16:21 → TELE-WESTW 16:21 → TELE-CENTR 08-06 02:31 → DOU IN ICU 08-07 17:08 → TELE-WESTW 08-08 16:34
PROVIDERS: ADMIT Student in an Organized Health Care Education/Training Program; ATTEND Nurse Practitioner Acute Care
DX: T39.1X1A Poisoning by 4-Aminophenol derivatives, accidental (unintentional), initial encounter (principal); N17.0 Acute kidney failure with tubular necrosis; K76.7 Hepatorenal syndrome; I50.23 Acute on chronic systolic (congestive) heart failure; K70.40 Alcoholic hepatic failure without coma; D68.9 Coagulation defect, unspecified; E83.51 Hypocalcemia; N18.4 Chronic kidney disease, stage 4 (severe); K85.90 Acute pancreatitis without necrosis or infection, unspecified; E87.20 Acidosis, unspecified; K57.30 Diverticulosis of large intestine without perforation or abscess without bleeding; K44.9 Diaphragmatic hernia without obstruction or gangrene; K76.0 Fatty (change of) liver, not elsewhere classified; N20.0 Calculus of kidney; D64.9 Anemia, unspecified; E83.42 Hypomagnesemia; I25.10 Atherosclerotic heart disease of native coronary artery without angina pectoris; I47.19 Other supraventricular tachycardia; I42.8 Other cardiomyopathies; I34.0 Nonrheumatic mitral (valve) insufficiency; I13.0 Hypertensive heart and chronic kidney disease with heart failure and stage 1 through stage 4 chronic kidney disease, or unspecified chronic kidney disease; Z87.891 Personal history of nicotine dependence; Z98.61 Coronary angioplasty status; Z95.818 Presence of other cardiac implants and grafts; Y92.89 Other specified places as the place of occurrence of the external cause
CPT/HCPCS: 36415; 36600; 71046; 74176; 76705; 80048; 80053; 80061; 80074; 80320; 80329; 81001; 82140; 82306; 82570; 82607; 82805; 82962; 83036; 83605; 83690; 83735; 84100; 84300; 84443; 84484; 85007; 85025; 85027; 85610; 85730; 86664; 87081; 93005; 96365; 96366; 96372; 96375; 99291; G0378; J2003; J2405; J3430; J3480; J7060

== ENCOUNTER → 2024-10-20 | Outpatient (CLI) | payer MEDICARE, MEDICAID ==
[~2024-10-20] MED LIST changes: -APIX5TAB PO; -ATOR20TA50 PO; -CARV6.2551 PO; +PANT40T PO; -SACU1TAB PO; -SERT-375 PO
[2024-10-20 08:40] LABS: Basophils # (auto) 0 10 ^3/uL (0-0.2); Basophils % (auto) 0.5 % (0.0-2.0); Eosinophils # (auto) 0.2 10 ^3/uL (0-0.8); Eosinophils % (auto) 3.1 % (0.0-7.0); Hematocrit 37.2 % (41.0-53.0); Hemoglobin 12.5 g/dL (13.5-17.5); Lymphocytes # (auto) 2.2 10 ^3/uL (0.4-5.4); Lymphocytes % (auto) 36.3 % (10.0-50.0); Mean Corpuscular Hemoglobin 30.1 pg (28.0-32.0); Mean Corpuscular Hgb Conc. 33.7 g/dL (32.0-36.0); Mean Corpuscular Volume 89.5 fL (80.0-100.0); Monocytes # (auto) 0.8 10 ^3/uL (0-1.3); Monocytes % (auto) 12.6 % (0.0-12.0); Neutrophils # (auto) 2.9 10 ^3/uL (1.6-8.6); Neutrophils % (auto) 47.5 % (37.0-80.0); Nucleated Red Blood Cells % 0.1 %; Platelet Count (auto) 257 10^3/uL (140-450); Red Blood Cells 4.16 10^6/uL (4.5-5.90); Red Cell Distribution Width 14.8 % (11.8-14.3); White Blood Cell 6.1 10^3/uL (4.4-10.8)
[2024-10-20 08:56] LABS: INR 1.06 (0.9-1.15); Partial Thromboplastin Time 27.9 SEC (24.5-34.5); Prothrombin Time 11.2 sec (9.3-11.8)
[2024-10-20 09:22] LABS: Alanine Aminotransferase 29 U/L (7-40); Albumin 4.6 g/dL (3.2-4.8); Anion Gap 8 (5-15); Aspartate Aminotransferase 24 U/L (13-40); BUN/Creatinine Ratio 16.2 (10.0-20.0); Bilirubin, Total 0.5 mg/dL (0.2-1.0); Blood Urea Nitrogen 19 mg/dL (9-23); Carbon Dioxide 27 mmol/L (20-31); Chloride 106 mmol/L (98-107); Glucose 115 mg/dL (74-106); Potassium 4.8 mmol/L (3.5-5.1); Sodium 141 mmol/L (136-145); Total Protein 7.9 g/dL (5.7-8.2)
[2024-10-20 09:23] LABS: Alkaline Phosphatase 117 U/L (46-116); Calcium 10.6 mg/dL (8.7-10.4)
== END | disposition home or self-care (01) ==
LOC: LAB 08:14
PROVIDERS: ATTEND Internal Medicine
DX: I25.5 Ischemic cardiomyopathy (principal); R35.0 Frequency of micturition; I50.9 Heart failure, unspecified; I48.91 Unspecified atrial fibrillation
CPT/HCPCS: 36415; 80053; 84153; 85025; 85610; 85730

== ENCOUNTER → 2025-01-27 | Outpatient (CLI) | payer MEDICAID ==
[2025-01-27 09:40] LABS: Basophils # (auto) 0 10 ^3/uL (0-0.2); Basophils % (auto) 0.5 % (0.0-2.0); Eosinophils # (auto) 0.1 10 ^3/uL (0-0.8); Eosinophils % (auto) 1.9 % (0.0-7.0); Hematocrit 36.9 % (41.0-53.0); Lymphocytes # (auto) 2.1 10 ^3/uL (0.4-5.4); Lymphocytes % (auto) 33.6 % (10.0-50.0); Mean Corpuscular Hemoglobin 26.3 pg (28.0-32.0); Mean Corpuscular Hgb Conc. 32.5 g/dL (32.0-36.0); Mean Corpuscular Volume 80.8 fL (80.0-100.0); Monocytes # (auto) 0.7 10 ^3/uL (0-1.3); Monocytes % (auto) 10.6 % (0.0-12.0); Neutrophils # (auto) 3.3 10 ^3/uL (1.6-8.6); Neutrophils % (auto) 53.4 % (37.0-80.0); Platelet Count (auto) 295 10^3/uL (140-450); Red Blood Cells 4.56 10^6/uL (4.5-5.90); Red Cell Distribution Width 16.4 % (11.8-14.3); White Blood Cell 6.2 10^3/uL (4.4-10.8)
[2025-01-27 10:15] LABS: INR 1.01 (0.9-1.15); Partial Thromboplastin Time 27.1 SEC (24.5-34.5); Prothrombin Time 10.7 sec (9.3-11.8)
[2025-01-27 10:45] LABS: Alanine Aminotransferase 28 U/L (7-40); Alkaline Phosphatase 93 U/L (46-116); Anion Gap 11 (5-15); Aspartate Aminotransferase 24 U/L (13-40); BUN/Creatinine Ratio 10.3 (10.0-20.0); Bilirubin, Total 0.5 mg/dL (0.2-1.0); Blood Urea Nitrogen 12 mg/dL (9-23); Calcium 9.9 mg/dL (8.7-10.4); Carbon Dioxide 26 mmol/L (20-31); Chloride 106 mmol/L (98-107); Cholesterol 136 mg/dL (< 200); HDL Cholesterol 48 mg/dL (40-59); LDL Cholesterol 65 mg/dL (< 100); Potassium 4.2 mmol/L (3.5-5.1); Sodium 143 mmol/L (136-145); Triglycerides 109 mg/dL (< 150)
[2025-01-27 10:46] LABS: Albumin 4.9 g/dL (3.2-4.8); Glucose 113 mg/dL (74-106)
== END | disposition home or self-care (01) ==
LOC: LAB 09:10
PROVIDERS: ATTEND Licensed Practical Nurse
DX: Z13.1 Encounter for screening for diabetes mellitus (principal); Z13.220 Encounter for screening for lipoid disorders; Z13.29 Encounter for screening for other suspected endocrine disorder; I11.0 Hypertensive heart disease with heart failure; I50.9 Heart failure, unspecified; E55.9 Vitamin D deficiency, unspecified; I48.0 Paroxysmal atrial fibrillation; D68.69 Other thrombophilia
CPT/HCPCS: 36415; 80053; 80061; 82043; 82274; 82306; 83036; 84443; 85025; 85610; 85730

== ENCOUNTER → 2025-02-01 | Outpatient (CLI) | payer MEDICARE, MEDICAID ==
[~2025-02-01] VITALS: Ht 170.2 cm; Wt 63.5 kg
[2025-02-01] MEDS: REGADENOSON 0.4 MG/5 ML SYRG IV ONE ×2 (09:22)
--- NOTE | 2025-02-02 07:25 | DVHSR ---
APPROVED REPORT Exam: Nuclear Stress Test Indication: Cardiac Clearance Stress Tech: Sadaf Elmore Ht: 5 ft 7 in Wt: 140 lbs BSA: 1.74 m2 HR: 69 bpm BP: 136/90 mmHg BMI: 21.92 Rhythm: NSR Medical History Medical History: Former Smoker, Cardiomyopathy, CAD, MO, Mitral Clips, HTN, DM, HLD, EF 35-40% Allergies: No known drug allergies Stress Test Details Stress Test: Pharmacologic stress testing performed using 0.4 mg of regadenoson per 5 mL given IV ov er 10 seconds. Reason for pharmacologic stress test: Cardiac Clearance. HR Resting HR: 69 bpmMax Heart Rate (APMHR): 155.312982 bpm Max HR Achieved: 115 bpmTarget HR (85% APMHR): 131.076012 bpm % of APMHR: 74.19 Recovery HR: 88 bpm BP Resting BP: 136/90 mmHg Recovery BP: 113/67 mmHg ECG Resting ECG: NSR Clinical Reason for Termination: Completed protocol Nurse Comments Uneventful stress test performed per prtocol. Patient tolerated well and ambulated back to [facility] in stable condition by tech. Stress ECG Conclusion inferior wall ischemia noted lvef 70% ecg shows, SR ST depressions and TWI with stress portion abnormal study NM EXAM: Myocardial Perfusion REST/STRESS Imaging Protocol: Rest Tc-99m/Stress Tc-99m 1 day Resting Data Rest SPECT myocardial perfusion imaging was performed in supine position 60 minutes following the int ravenous injection of 14 mCi of Tc-99m Sestamibi. Time of rest injection: 0750 Time of rest imagin Administration Route: IV Administration Site: Left Hand Pharmacologic Stress Pharmacologic stress test was performed by injecting Regadenoson 0.4 mg IV push followed by the intra venous injection of 31 mCi of Tc-99m Sestamibi. Time of stress injection: 0923 Time of stress imagin Administration Route: IV Administration Site: Left Hand Gated Stress SPECT was performed 60 minutes after stress injection. The images were gated to evaluate regional wall motion and calculate left ventricular ejection fracti on. Stress only was performed in the Supine position. Nuclear Conclusion Nuclear Findings: positive for ischemia inferior wall ischemia noted lvef 70% ecg shows, SR ST depressions and TWI with stress portion abnormal study
== END | disposition home or self-care (01) ==
LOC: XYW 07:08
PROVIDERS: ATTEND Internal Medicine
DX: Z01.810 Encounter for preprocedural cardiovascular examination (principal); I25.9 Chronic ischemic heart disease, unspecified; I25.10 Atherosclerotic heart disease of native coronary artery without angina pectoris; I11.0 Hypertensive heart disease with heart failure; I50.22 Chronic systolic (congestive) heart failure; E11.9 Type 2 diabetes mellitus without complications; I42.9 Cardiomyopathy, unspecified; I25.2 Old myocardial infarction; I48.0 Paroxysmal atrial fibrillation; E78.5 Hyperlipidemia, unspecified; R10.11 Right upper quadrant pain; D68.69 Other thrombophilia; Z98.890 Other specified postprocedural states; Z95.818 Presence of other cardiac implants and grafts; Z87.891 Personal history of nicotine dependence
CPT/HCPCS: 93017; J2785; 78452

== ENCOUNTER 2025-06-23 08:48 | Outpatient (CLI) | payer MEDICARE, MEDICAID ==
[2025-06-23 09:57] LABS: Hematocrit 44.9 % (41.0-53.0); Hemoglobin 15.2 g/dL (13.5-17.5); Mean Corpuscular Hemoglobin 29.4 pg (28.0-32.0); Mean Corpuscular Volume 87.0 fL (80.0-100.0); Nucleated Red Blood Cells % 0.1 %
[2025-06-23 10:50] LABS: Cholesterol 130 mg/dL (< 200); Triglycerides 120 mg/dL (< 150)
[2025-06-23 10:52] LABS: HDL Cholesterol 45 mg/dL (40-59)
[2025-06-23 11:36] LABS: Hepatitis A Total Antibody Positive (Negative); Hepatitis B Surface Antigen Negative (Negative); Hepatitis C Antibody Negative (Negative)
== END 2025-06-23 17:00 | disposition home or self-care (01) ==
LOC: LAB 08:48
PROVIDERS: ATTEND Licensed Practical Nurse
DX: I11.0 Hypertensive heart disease with heart failure (principal); E78.5 Hyperlipidemia, unspecified; E55.9 Vitamin D deficiency, unspecified; K70.0 Alcoholic fatty liver; R73.03 Prediabetes; R00.2 Palpitations; I50.9 Heart failure, unspecified
CPT/HCPCS: 36415; 80061; 82306; 83036; 85025; 86704; 86706; 86708; 86803; 87340